=== PATIENT | female | born 1950 | race Caucasian/White ===

== ENCOUNTER 2017-07-28 21:38 | Inpatient (IN) | payer MEDICARE, OTHER ==
[~2017-07-28] VITALS: Ht 152.4 cm; Wt 70.8 kg
[2017-07-28 21:55] VITALS: BP 100/55
--- NOTE | 2017-07-28 23:15 | NUR ---
GPS/REMOTE MEDICAL CODER ADMISSION NOTES: RECEIVED 67YR. OLD FEMALE ON A 5150 HOLD FOR DTS. PT. ORIENTED TO UNIT POLICYS, PROTOCOLS, AND PROCEDURES. CALL MADSEN WITHIN REACH. SAFETY ENVIRONMENT OBSERVED AT ALL TIMES. NO C/O PAIN OR DISCOMFORT. BED ALARM ON. PSYCH AND MEDICAL DR. INFORMED OF PT. ADMISSION AND FAMILY ALSO NOTIFIED. WILL CONTINUE TO MONITOR.
[2017-07-29] MEDS ORDERED: MAG HYDROX/AL HYDROX/SIMETH 30 ML UDC PO PRN
[2017-07-29] MEDS ORDERED: TEMAZEPAM 7.5 MG CAPSULE PO PRN
[2017-07-29] MEDS ORDERED: LORAZEPAM 0.5 MG TABLET PO PRN
[2017-07-29] MEDS ORDERED: MAGNESIUM HYDROXIDE 30 ML UDC PO PRN
[2017-07-29 07:21] LABS: CHOLESTEROL 142 mg/dL (<200); HDL CHOLESTEROL 81 mg/dL (40-60); LDL 49 mg/dL (0-99); TRIGLYCERIDES 80 mg/dL (30-150)
[2017-07-29 07:23] LABS: ALBUMIN 2.7 g/dL (3.4-5.0); BILIRUBIN,TOTAL 0.4 mg/dL (0.2-1.0); CALCIUM, SERUM 8.8 mg/dL (8.5-10.1); CREATININE 1.4 mg/dL (0.6-1.3); POTASSIUM 3.2 mmol/L (3.5-5.1); TOTAL PROTEIN, SERUM 6.2 g/dL (6.4-8.2)
[2017-07-29 07:26] LABS: BASOPHILS % (AUTO) 0.2 % (0.0-2.0); EOSINOPHILS # (AUTO) 0.1 /CMM (0.0-0.7); EOSINOPHILS % (AUTO) 1.3 % (0.0-6.0); HEMATOCRIT 35 % (33-45); HEMOGLOBIN 11.6 g/dL (11.5-14.8); LYMPHOCYTES # (AUTO) 2.7 /CMM (0.8-4.8); LYMPHOCYTES % (AUTO) 35.3 % (20.0-44.0); MEAN CORPUSCULAR HEMOGLOBIN 32 PG (26.0-33.0); MEAN CORPUSCULAR HGB CONC 33 g/dl (31.0-36.0); MEAN CORPUSCULAR VOLUME 97 fL (82-100); MONOCYTES # (AUTO) 0.8 /CMM (0.1-1.30); MONOCYTES % (AUTO) 10.4 % (2.0-12.0); NEUTROPHILS # (AUTO) 4.1 /CMM (1.8-8.9); NEUTROPHILS % (AUTO) 52.8 % (43.0-81.0); PLATELET COUNT (AUTO) 102 /CMM (150-450); RDW COEFFICIENT OF VARIATION 13.6 (11.5-15.0); RED BLOOD CELL COUNT(AUTO) 3.65 MIL/uL (4.0-5.2); WHITE BLOOD COUNT (AUTO) 7.7 K/uL (4.3-11.0)
[2017-07-29] MEDS ORDERED: ARIP20TA8 PO (08:25)
[2017-07-29] MEDS ORDERED: HYDR12.55 PO (08:25)
[2017-07-29] MEDS ORDERED: DIVA500T4 PO (08:25)
[2017-07-29] MEDS ORDERED: TOPI50TA21 PO (08:25)
[2017-07-29] MEDS ORDERED: AMAN100T PO (08:25)
[2017-07-29] MEDS ORDERED: QUET25TA PO (08:25)
[2017-07-29] MEDS ORDERED: OXYB10TA PO (08:25)
[2017-07-29] MEDS ORDERED: ALEN70TA45 PO (08:25)
--- NOTE | 2017-07-29 10:43 | NUR ---
gps crop quantitative geneticist: md visit seen by dr. quiroz with orders. orders acknowledged. home meds has been reconciled by .
[2017-07-29] MEDS ORDERED: POTASSIUM CHLORIDE 20 MEQ TAB.PRT.SR PO SCH (12:00)
--- NOTE | 2017-07-29 12:11 | NUR ---
Initial Discharge Note: Per patient, she rents a room in a house and lives with Analisa Kents and would like to return home upon discharge. [address] [place] [id number]. . metal bonding worker spoke to Cleopatra Price ([phone]) who confirmed that patient does rent a room in her house and can return home upon discharge. metal bonding worker will help form a safe and proper discharge.
[2017-07-29] MEDS: TOPIRAMATE 25 MG TABLET PO SCH ×2 (12:21→21:14)
[2017-07-29 16:00] VITALS: BP 119/60
[2017-07-29] MEDS: AMANTADINE HCL 100 MG CAPSULE PO SCH (16:19)
[2017-07-29 20:00] VITALS: BP 101/57
[2017-07-29] MEDS: DIVALPROEX SODIUM 500 MG TABLET.DR PO SCH (21:14)
[2017-07-29] MEDS: ARIPIPRAZOLE 5 MG TABLET PO SCH (21:15)
[2017-07-29 22:00] VITALS: BP 110/69
[2017-07-30 08:00] VITALS: BP 99/54
[2017-07-30] MEDS: HYDROCHLOROTHIAZIDE 25 MG TABLET PO SCH (09:00)
[2017-07-30] MEDS: TOPIRAMATE 25 MG TABLET PO SCH ×2 (09:36→21:45)
[2017-07-30] MEDS: DIVALPROEX SODIUM 500 MG TABLET.DR PO SCH ×2 (09:36→21:44)
[2017-07-30] MEDS: AMANTADINE HCL 100 MG CAPSULE PO SCH ×2 (09:36→17:38)
[2017-07-30 16:12] VITALS: BP 114/62
[2017-07-30] MEDS: ACETAMINOPHEN 325 MG TABLET PO PRN (17:38)
[2017-07-30] MEDS: ARIPIPRAZOLE 5 MG TABLET PO SCH (21:45)
[2017-07-31] MEDS ORDERED: ALENDRONATE 70 MG TABLET PO SCH (06:30)
[2017-07-31 08:14] VITALS: BP 127/60
[2017-07-31] MEDS: DIVALPROEX SODIUM 500 MG TABLET.DR PO SCH ×2 (08:39→21:38)
[2017-07-31] MEDS: TOPIRAMATE 25 MG TABLET PO SCH ×2 (08:39→21:38)
[2017-07-31] MEDS: HYDROCHLOROTHIAZIDE 25 MG TABLET PO SCH (08:39)
[2017-07-31] MEDS: AMANTADINE HCL 100 MG CAPSULE PO SCH ×2 (08:39→17:43)
[2017-07-31 16:00] VITALS: BP 135/62
[2017-07-31] MEDS: ACETAMINOPHEN 325 MG TABLET PO PRN (17:43)
[2017-07-31 19:59] VITALS: BP 103/63
[2017-07-31] MEDS: ARIPIPRAZOLE 5 MG TABLET PO SCH (21:38)
[2017-08-01 08:00] VITALS: BP 127/71
[2017-08-01] MEDS: AMANTADINE HCL 100 MG CAPSULE PO SCH ×2 (08:30→17:19)
[2017-08-01] MEDS: TOPIRAMATE 25 MG TABLET PO SCH ×2 (08:30→21:30)
[2017-08-01] MEDS: DIVALPROEX SODIUM 500 MG TABLET.DR PO SCH ×2 (08:31→21:30)
[2017-08-01] MEDS: HYDROCHLOROTHIAZIDE 25 MG TABLET PO SCH (08:31)
[2017-08-01] MEDS ORDERED: Z GUARD REMEDY 2 OZ OINT TP PRN (12:00)
[2017-08-01 16:00] VITALS: BP 128/71
[2017-08-01 20:47] VITALS: BP 128/75
[2017-08-01] MEDS: ARIPIPRAZOLE 5 MG TABLET PO SCH (21:30)
--- NOTE | 2017-08-02 06:27 | NUR ---
RN GPS NOTES ALL NEEDS MET AND ANTICIPATED , DENIES SI/ HI DURING SHIFT , NO ACUTE DISTRESS NOTED, REMAINS 1;1 SITTER FOR SAFETY , ENDORSE TO NEXT SHIFT FOR CONTINUITY OF CARE.
[2017-08-02 08:00] VITALS: BP 109/60
[2017-08-02] MEDS: HYDROCHLOROTHIAZIDE 25 MG TABLET PO SCH (08:21)
[2017-08-02] MEDS: DIVALPROEX SODIUM 500 MG TABLET.DR PO SCH ×3 (08:21→21:07)
[2017-08-02] MEDS: AMANTADINE HCL 100 MG CAPSULE PO SCH ×2 (08:21→16:41)
[2017-08-02] MEDS: TOPIRAMATE 25 MG TABLET PO SCH ×2 (08:21→21:07)
--- NOTE | 2017-08-02 10:02 | NUR ---
GPS/RN PATIENT REFUSED DEPAKOTE 500 MG X 3, EXPLAINED RISKS AND BENEFITS, WILL CONTINUE TO ENCOURAGE TO COMPLY WITH REGIMEN
[2017-08-02] MEDS ORDERED: DIVALPROEX SODIUM 500 MG TABLET.DR PO ONE (16:00)
[2017-08-02 16:02] VITALS: BP 115/65
[2017-08-02 20:29] VITALS: BP 134/67
[2017-08-02] MEDS: ARIPIPRAZOLE 5 MG TABLET PO SCH (21:07)
[2017-08-03 06:54] LABS: CALCIUM, SERUM 8.9 mg/dL (8.5-10.1); CREATININE 1.3 mg/dL (0.6-1.3); MAGNESIUM 1.8 mg/dL (1.8-2.4); PHOSPHORUS 3.4 mg/dL (2.5-4.9)
[2017-08-03 07:19] LABS: POTASSIUM 3.3 mmol/L (3.5-5.1)
[2017-08-03] MEDS: DIVALPROEX SODIUM 500 MG TABLET.DR PO SCH ×2 (08:47→22:10)
[2017-08-03] MEDS: HYDROCHLOROTHIAZIDE 25 MG TABLET PO SCH (08:47)
[2017-08-03] MEDS: TOPIRAMATE 25 MG TABLET PO SCH ×2 (08:47→22:10)
[2017-08-03] MEDS: AMANTADINE HCL 100 MG CAPSULE PO SCH ×2 (08:47→17:03)
[2017-08-03 09:03] VITALS: BP 106/65
[2017-08-03] MEDS: DIVALPROEX SODIUM 250 MG TABLET.DR PO SCH (12:26)
[2017-08-03] MEDS ORDERED: POTASSIUM CHLORIDE 20 MEQ TAB.PRT.SR PO SCH (15:00)
[2017-08-03 16:59] VITALS: BP 105/64
--- NOTE | 2017-08-03 19:30 | NUR ---
GPS RN NOTE, RECEIVED PATIENT AWAKE AND IN BED, NO S/S OR COMPLAINTS OF PAIN AT THIS TIME. PATIENT IS DISPLAYING NO S/S OF APPARENT DISTRESS AT THIS TIME. PATIENT BREATHING IS UNLABORED WITH EQUAL RISE AND FALL OF THE CHEST. PATIENT HAS A ONE TO ONE SITTER FOR FALL. PATIENT IS ALERT AND ORIENTED X 3 ON ROOM AIR WITH A SPO2 OF 96%. PATIENT IS AMBULATORY WITH ASSISTANCE, COMPLIANT MEDICATION, CONFUSED, DISORGANIZED, AND NEEDS REORIENTATION. PATIENT DENIES SUICIDE IDEATIONS AND HOMICIDAL IDEATIONS AT THIS TIME. PATIENT EDUCATED ON THE USE OF THE CALL MADSEN. PATIENT BED SIDE RAILS UP X2 FOR SAFETY, BED IS LOCKED AND LOW, AND I WILL CONTINUE TO MONITOR AND MAINTAIN SAFETY Q15MIN WITH THE HELP OF STAFF.
[2017-08-03 20:20] VITALS: BP 101/50
[2017-08-03] MEDS: ARIPIPRAZOLE 5 MG TABLET PO SCH (22:10)
[2017-08-04] MEDS: HYDROCHLOROTHIAZIDE 25 MG TABLET PO SCH (08:06)
[2017-08-04] MEDS: AMANTADINE HCL 100 MG CAPSULE PO SCH ×2 (08:06→17:06)
[2017-08-04] MEDS: TOPIRAMATE 25 MG TABLET PO SCH ×2 (08:06→21:30)
[2017-08-04] MEDS: DIVALPROEX SODIUM 500 MG TABLET.DR PO SCH ×2 (08:06→21:30)
[2017-08-04 08:35] VITALS: BP 109/60
--- NOTE | 2017-08-04 11:37 | NUR ---
church worker spoke to Cleopatra Price ([phone]) to inform her that patient will be returning home tomorrow. Analisa was agreeable with the discharge plan. church worker arranged transportation with the crisis triage team of [facility] ([phone]) Geronimo Baird the surgical supervisor arranged transportation and patient will be picked-up at 11:30 am. church worker also arranged after care appointment with the [facility] in [place] [address] ( / ), Patient has an appointment with Rosa Mcdonald the clinician on 08/10/17 at 2:00PM. Patient has an appointment with psychiatrist Dr. Mandie Tony on 08/11/17 at 3:30Pm. Rosa stated that patient can also receive her medications at the [facility] in [place] (phone: [phone]/ ).
[2017-08-04] MEDS: DIVALPROEX SODIUM 250 MG TABLET.DR PO SCH (13:24)
[2017-08-04 17:16] VITALS: BP 107/66
[2017-08-04 20:00] VITALS: BP 114/57
[2017-08-04] MEDS: ARIPIPRAZOLE 5 MG TABLET PO SCH (21:30)
[2017-08-05 08:00] VITALS: BP 139/76
[2017-08-05] MEDS: DIVALPROEX SODIUM 500 MG TABLET.DR PO SCH (09:09)
[2017-08-05] MEDS: TOPIRAMATE 25 MG TABLET PO SCH (09:09)
[2017-08-05 09:10] VITALS: BP 139/76
[2017-08-05] MEDS: HYDROCHLOROTHIAZIDE 25 MG TABLET PO SCH (09:10)
[2017-08-05] MEDS: AMANTADINE HCL 100 MG CAPSULE PO SCH (09:10)
[2017-08-05] MEDS: DIVALPROEX SODIUM 250 MG TABLET.DR PO SCH (12:25)
--- NOTE | 2017-08-05 13:00 | NUR ---
GPS RN: PER DR. LOPEZ'S ORDER PATIENT'S HOLD DISCONTINUED AND PATIENT DISCHARGED HOME WITH FRIEND ZHANG SINGH ([phone]). PATIENT'S CONDITION IS STABLE FOR DISCHARGE, VS STABLE. PATIENT DENIES SI/HI/AVH AT THE TIME OF DISCHARGE. ALL BELONGINGS RETURNED TO THE PATIENT, PROPERTY MANAGEMENT FORM SIGNED. MEDICATIONS RECONCILED BY DR. LOPEZ AND DR. HOPKINS AND THE CURRENT MED LIST FAXED TO THE [facility] (SPOKE WITH AILYN RASHID, CONFIRMED THE RECEIPT). PATIENT PROVIDED WITH REFERRAL TO A PSYCHIATRIST (SEE SW NOTES). PT STATES THAT HAS A PCP WITH WHOM SHE WILL FOLLOW UP. PATIENT LEFT THE UNIT AT 1300 ACCOMPANIED BY THE AUTOMATIC TOE LASTER RASHEEDA AND STAFF MEMBER. LEFT VIA [place] [facility]SPORT[facility].
--- NOTE | 2017-08-05 15:17 | NUR ---
Discharge Note: Patient was discharged home [address] [place] [address]. . Patient was picked up by the crisis triage team of [facility] ([phone]). Patient's friend Cleopatra Price ([phone]) was notified and was agreeable with the discharge plan. Patient was agreeable with the discharge plan. Patient's mood and affect were calm and appropriate upon discharge. Patient denied suicidal and homicidal ideations. social worker health services also arranged [facility] in [address] [address] ( / ), Patient has an appointment with Rosa Mcdonald the clinician on 08/10/17 at 2:00PM. Patient has an appointment with psychiatrist Dr. Mandie Tony on 08/11/17 at 3:30Pm. Facilitated info to IDT team who are in agreement with discharge arrangement. The multidisciplinary exitcare form was done, printed, signed, and given to the patient.
== END 2017-08-05 13:00 | disposition home or self-care (01) | DRG 885 ==
LOC: GPS 21:38
PROVIDERS: ADMIT Psychiatry & Neurology Psychiatry; ATTEND Nurse Practitioner Acute Care
DX: F25.9 Schizoaffective disorder, unspecified (principal); N17.0 Acute kidney failure with tubular necrosis; E44.1 Mild protein-calorie malnutrition; F31.89 Other bipolar disorder; Z73.6 Limitation of activities due to disability; E87.6 Hypokalemia; E78.5 Hyperlipidemia, unspecified; E66.9 Obesity, unspecified; G40.909 Epilepsy, unspecified, not intractable, without status epilepticus; I10 Essential (primary) hypertension; M81.0 Age-related osteoporosis without current pathological fracture; Z91.14 Patient's other noncompliance with medication regimen; Z68.30 Body mass index [BMI] 30.0-30.9, adult; R25.1 Tremor, unspecified
CPT/HCPCS: 36415; 80048-TC; 80053-TC; 80061-TC; 80164-TC; 83735-TC; 84100-TC; 85025-TC; 87081-TC; 97116-TC; 97530-TC